=== PATIENT | female | born 1950 | race Caucasian/White ===

== ENCOUNTER 2016-10-24 06:46 | Inpatient (IN) | payer MEDICARE ==
--- NOTE | 2016-10-22 16:12 | CR ---
DATE OF CONSULTATION: 10/22/2016 PREOPERATIVE EVALUATION AND CONSULTATION: REQUESTING SURGEON: Dr. Jose Manuel Ramirez CONSULTING PHYSICIAN: Dr. Fuad Lemus PROPOSED SURGERY: Repair or relocation of colostomy due to a parastomal hernia. DATE OF SURGERY: Planned 10/24/2016 at [facility]. HISTORY OF PRESENT ILLNESS: A very pleasant 66-year-old patient of mine who presents for a preoperative evaluation and consultation. The patient notes in general she is doing quite well. She did have questions regarding repair versus relocation and this was addressed by Dr. Ramirez. She had second opinions prior to this as well and is comfortable going ahead with surgery as planned. Preoperative laboratories were completed on 10/20/2016 without significant abnormality. The patient has no significant cardiac or pulmonary history. She does have known hypertension which has been well-controlled on a low-dose angiotensin-converting enzyme (STAFNORD) inhibitor. She does have a history of breast cancer which is treated at [facility] and the [facility]. She has no evidence of disease. She has had no issues with anesthesia in the past. She does take [id number] Zyrtec for allergies, Pepcid for gastroesophageal reflux disease (GERD) symptoms. Otherwise, she watches her diet and denies any other new concerns or problems. PAST MEDICAL HISTORY: 1. History of breast cancer. 2. Hyperlipidemia. 3. Hypertension. 4. Allergic rhinitis. 5. History of colonic perforation with ostomy creation in 2002. PAST SURGICAL HISTORY: 1. Colostomy after urgent colectomy due to perforation [place] [address] White. 2. Paraesophageal hernia repair [place] [address] Ramirez. 3. Right side carpal tunnel release in 2003. 4. Ventral hernia repair a second time with a parastomal hernia with Dr. Ramirez. 5. Tubal ligation in 1976. 6. Appendectomy in 1956. 7. Right mastectomy in December 2014. ALLERGIES: Shortness of breath with LEVAQUIN and AVELOX, rash with DOXYCYCLINE, AMOXICILLIN and AMPICILLIN. CURRENT MEDICATIONS: Include: - Pepcid AC 10 mg by mouth as needed GERD symptoms - lisinopril 2.5 mg twice a day - nitrofurantoin twice a day - calcium 600 mg daily - ostomy supplies FAMILY HISTORY: 1. Father from sepsis, also a possible rupture of an abdominal aortic aneurysm. 2. Mother from a stroke, had a diabetes. 3. Two brothers passed, one with severe cardiovascular disease who of a myocardial infarction (NC) and renal failure with a stroke, another with esophageal cancer. SOCIAL HISTORY: Patient is to her , Martin, and they have three growing children. 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 She has never smoked. She does not use excess alcohol. REVIEW OF SYSTEMS: As per the history of present illness (HPI), otherwise 10-system review is negative. PHYSICAL EXAMINATION: VITAL SIGNS: Blood pressure 132/82, pulse of 82. Height of 5 feet, 2 inches. Weight of 162 pounds. Body mass index (BMI) 29.6. Oxygen saturation is 98% on room air. GENERAL: The patient is very pleasant in no acute distress, nontoxic, alert and oriented times three. She is at baseline health, is quite functional and interactive. HEENT: Head is normocephalic, atraumatic. Pupils are equal, round, and reactive to light and accommodation. Extraocular motions intact. No lesions of lid or conjunctiva. Oral cavity and oropharynx are benign. NECK: Supple. HEART: Regular rate and rhythm, S1, S2. No murmurs heard. LUNGS: Clear to auscultation bilaterally. No wheezes, rales, or rhonchi. ABDOMEN: Soft, nontender, nondistended. Ostomy is on the left with a paraesophageal hernia. EXTREMITIES: No clubbing, cyanosis, or edema. Normal to inspection and palpation. Normal gait. NEUROLOGIC: Examination is nonfocal. PREOPERATIVE LABORATORY DATA: Completed including an EKG that showed a normal sinus rhythm with no significant abnormalities, a normal CBC and CMP were completed on 10/20/2016. ASSESSMENT AND PLAN: 1. Preoperative evaluation and consultation. At this point in time, the patient appears to be optimized for surgical intervention. She has no significant coronary or pulmonary anesthesia issues at this time. Her other medical issues appear to be stable and if she has any new problems or issues prior to surgery, she will let us know. 2. Parastomal hernia. The patient looks forward to either relocation or appropriate repair and she does look forward to having this completed. 3. Hypertension. Excellent results on present medication. We will continue. Normal electrolytes. 4. Hyperlipidemia. Controlled with diet previously. We will monitor. 5. Personal history of breast cancer. The patient is doing well, following with both her surgeon and oncologist in [place]. No evidence of disease. 6. Allergic rhinitis. She does well with hfkj-wnn-kcoitza Zyrtec. 7. Gastroesophageal reflux disease (GERD). Good results with Pepcid AC. 8. Colostomy status. We discussed her status in detail. We discussed the potential for reversal. She notes that she has thought this through and is not interested in colostomy reversal but notes she is interested in having this appropriately fixed definitively. If she has any problems or issues, she will discuss these further with Dr. Ramirez. 9. Ongoing care. I will go ahead and see her as scheduled. If she has any problems or issues sooner, she will let us know.
[2016-10-24] VITALS (8 sets, daily range): BP systolic 132–170; BP diastolic 68–87
[~2016-10-24] VITALS: Ht 162.6 cm; Wt 74.4 kg
[~2016-10-24 06:46] MED LIST: CALC600T10; CALTCHW5 PO; CLAR5CHW; LISI-542 PO; LISI2.5T PO; METAMUCIL; MULTIVIT; PEPC20TA2 PO; TYLE325T5 PO; TYLE650T30 PO; ULTR50TA PO; ZITHTAB PO; ZYRT10CA PO; areds 2 PO
[2016-10-24] MEDS ORDERED: LR 1,000 ML IV SCH ×3 (07:00→13:30)
--- NOTE | 2016-10-24 08:21 | HPE ---
DATE OF ADMISSION: 10/24/2016 CHIEF COMPLAINT: Parastomal hernia. HISTORY OF PRESENT ILLNESS: The patient has a recurrent parastomal hernia on the left lower quadrant that has been slowly increasing over time and it has been more problematic. It has not caused any obstruction or nausea, but her ostomy is enlarging, becoming painful, giving her pressure, and causing difficulties with fitting of her ostomy appliance. At this point, she has developed a very large parastomal hernia. The last time we used a biologic mesh and had increased risk of recurrence and has recurred at this time. She is not having any blood from the ostomy. She does not have any lower rectal complaints at this time. She had a diverting colostomy because of perianal complications of pain, constipation, etc. She does not want reversal of her colostomy at this time. PAST MEDICAL HISTORY: Significant for history of appendectomy, history of carpal tunnel release, history of ventral/parastomal hernia repair, history of tubal ligation, history of sigmoid colectomy, history of colostomy, history of mastectomy (right). MEDICATIONS (include): - lisinopril - Zyrtec - calcium - PreserVision PHYSICAL EXAMINATION: Reveals a 66-year-old female who looks stated age. HEENT: Reveals an atraumatic, normocephalic head with extraocular movements intact. Pupils are equal and reactive to light. Sclerae nonicteric. Oropharynx is clear without exudate and lesions. Neck is supple without adenopathy. Lungs are clear to auscultation without crackles, wheezes or rhonchi. Heart is regular without murmur. Abdomen is soft, nondistended; however, she has a very large left lower quadrant parastomal hernia that is nontender. It partially reduces, but is so large that it is not easily reduced. The ostomy is functioning fine. There is no abdominal tenderness, guarding, rebound or peritoneal signs. She has a previous right lower quadrant appendectomy site without evidence of hernia. She has a lower midline incision. There is no evidence of incisional hernias appreciated. IMPRESSION AND PLAN: The patient has a parastomal hernia that has been increasing in size and the question at this point is whether local repair is going to be successful, although I do feel the recurrence rate may be relatively high. We may be able to use some synthetic mesh this time, although the infection rate is slightly higher with this, where complications of an infected mesh are higher. She understands our concern at this point about primary repair of this fascial defect with revision of the ostomy. The second option is to reduce the parastomal hernia and place the colostomy in the right lower quadrant while using that parastomal hernia as our incision. This may or may not be amenable to placement. If this is the case, we may have to open up the midline incision. I would find that that would be a less reasonable option for her and she would prefer not to have to two large operative incisions on her inferior abdomen. She understands that there are multiple options available for her and much of which depends on intraoperative findings. She understands the risks that include, but are not limited to, infection, bleeding, damage to surrounding structures and to the colostomy, colostomy dysfunction, colostomy necrosis, as well as, recurrence of the hernia. She understands that the recurrence of the hernia is relatively large. It is relatively likely in this large hernia itself, but I do feel that given the progression in the size of it itself, I do feel that this needs more urgent treatment. She agrees to proceed with this. We have kept her nothing by mouth (n.p.o.) and will plan on a mechanical bowel prep as well as IV antibiotics the day of surgery.
[2016-10-24] MEDS ORDERED: VANCOMYCIN 1000 MG/20 ML VIAL (J3370) As Ordered ONE (08:53)
[2016-10-24] MEDS ORDERED: CETIRIZINE (ZyrTEC) 10 MG TAB PO SCH (09:00)
[2016-10-24] MEDS ORDERED: VANCOMYCIN HCL 1,000 MG, VIAL MATE ADAPTER 1 EACH in D5W 250 ML IV ONE (09:00)
[2016-10-24] MEDS ORDERED: ROCURONIUM BROMIDE 50 MG/5 ML VIAL As Ordered ONE (10:00)
[2016-10-24] MEDS ORDERED: LIDOCAINE 2% INJ 100 MG/5 ML SDV (FOR ANES.) As Ordered ONE (10:00)
[2016-10-24] MEDS ORDERED: PROPOFOL 200 MG/20 ML VIAL As Ordered ONE (10:00)
[2016-10-24] MEDS ORDERED: ONDANSETRON 4MG/2ML VIAL (J2405) As Ordered ONE (10:00)
[2016-10-24] MEDS ORDERED: fentaNYL 100 MCG/2 ML INJECTION (J3010) As Ordered ONE ×2 (10:01→10:53)
[2016-10-24] MEDS ORDERED: MIDAZOLAM INJ 2 MG/2 ML VIAL (J2250) As Ordered ONE (10:01)
[2016-10-24] MEDS ORDERED: BUPIVACAINE HCL 0.25% 10 ML VIAL As Ordered ONE (11:08)
[2016-10-24] MEDS ORDERED: BUPIVACAINE LIPOSOME/PF 1.3% 20 ML VIAL (13.3MG/ML)(EXPAREL) As Ordered ONE (11:08)
[2016-10-24] MEDS ORDERED: HYDROmorphone HCL 2 MG/ML 1ML VIAL (J1170) As Ordered ONE (11:36)
[2016-10-24] MEDS ORDERED: NEOSTIGMINE 1MG/ML 5 ML SYRINGE (J2710) As Ordered ONE (11:54)
[2016-10-24] MEDS ORDERED: GLYCOPYRROLATE INJ 0.2 MG/ML 2 ML VIAL As Ordered ONE (11:54)
[2016-10-24] MEDS: NS 1,000 ML IV SCH (12:37)
[2016-10-24] MEDS ORDERED: MORPHINE PCA 1MG/ML 100ML CADD As Ordered ONE (12:44)
[2016-10-24] MEDS ORDERED: NALOXONE INJ 0.4 MG/1 ML VIAL (J2310) IV PRN (12:45)
[2016-10-24] MEDS ORDERED: ONDANSETRON 4MG/2ML VIAL (J2405) IV PRN ×3 (12:45→13:30)
[2016-10-24] MEDS ORDERED: NALBUPHINE HCL 10 MG/ML AMP (J2300) IV PRN (12:45)
[2016-10-24] MEDS ORDERED: MORPHINE PCA 1MG/ML 100ML CADD IV PRN (12:45)
[2016-10-24] MEDS ORDERED: NORCO, ANEXSIA 5/325MG TABLET (HYDROcodone/ACETAMINOPHEN) PO PRN ×2 (12:45)
[2016-10-24] MEDS ORDERED: EPIDURAL/PCA KEYS XX PRN (12:45)
[2016-10-24] MEDS ORDERED: PROMETHAZINE INJ 25 MG/ML VIAL (J2550) IV PRN (12:45)
[2016-10-24] MEDS ORDERED: diphenhydrAMINE INJ 50MG/ML VIAL (J1200) IV PRN (12:45)
[2016-10-24] MEDS ORDERED: PERCOCET 5MG/325MG TAB PO PRN ×3 (12:45→13:30)
[2016-10-24] MEDS ORDERED: MORPHINE 4 MG/ML 1ML SYRINGE IV PRN (12:45)
[2016-10-24] MEDS ORDERED: METOCLOPRAMIDE INJ 10MG/2ML VIAL (J2765) IV PRN ×2 (12:45→13:30)
[2016-10-24] MEDS ORDERED: MORPHINE 2 MG/ML 1ML SYRINGE IV PRN (12:45)
[2016-10-24] MEDS ORDERED: fentaNYL 100 MCG/2 ML INJECTION (J3010) IV PRN (13:30)
[2016-10-24] MEDS: LISINOPRIL *2.5 MG* TAB PO SCH ×2 (15:33→20:37)
[2016-10-24] MEDS: PANTOPRAZOLE 40MG TAB (PROTONIX) PO SCH (15:33)
[2016-10-24] MEDS: LR 1,000 ML IV SCH ×2 (15:34→20:39)
[2016-10-24] MEDS: ALVIMOPAN 12 MG CAPSULE (ENTEREG) PO SCH (20:37)
[2016-10-24] MEDS: CETIRIZINE (ZyrTEC) 10 MG TAB PO SCH (20:38)
[2016-10-25] MEDS: ACETAMINOPHEN TAB 650MG DOSE (2X325MG) PO PRN ×5 (00:07→20:58)
[2016-10-25 02:00] VITALS: BP 142/76
[2016-10-25] MEDS: LR 1,000 ML IV SCH ×3 (04:22→20:30)
[2016-10-25 06:00] VITALS: BP 132/70
[2016-10-25 06:16] LABS: MEAN CORPUSCULAR HEMOGLOBIN 29.6 pg (27.0-33.0); MEAN CORPUSCULAR HGB CONC 33.1 g/dl (32.0-36.5); MEAN CORPUSCULAR VOLUME 89.6 fl (80.0-96.0); WHITE BLOOD COUNT 9.3 K/mm3 (4.0-10.0)
[2016-10-25 06:31] LABS: ANION GAP 9 MEQ/L (8-16); BLOOD UREA NITROGEN 8 MG/DL (7-18); CALCIUM LEVEL 8.3 MG/DL (8.8-10.2); CARBON DIOXIDE LEVEL 28 MEQ/L (21-32); CHLORIDE LEVEL 106 MEQ/L (98-107); CREATININE FOR GFR 0.61 MG/DL (0.55-1.02); GLOMERULAR FILTRATION RATE > 60.0 (>45); GLUCOSE, FASTING 108 MG/DL (80-110); POTASSIUM SERUM 3.9 MEQ/L (3.5-5.1); SODIUM LEVEL 143 MEQ/L (136-145)
[2016-10-25] MEDS: ALVIMOPAN 12 MG CAPSULE (ENTEREG) PO SCH ×2 (09:22→20:57)
[2016-10-25] MEDS: LISINOPRIL *2.5 MG* TAB PO SCH (09:25)
[2016-10-25] MEDS: PANTOPRAZOLE 40MG TAB (PROTONIX) PO SCH (09:25)
[2016-10-25 10:00] VITALS: BP 135/65
[2016-10-25] MEDS: NS 1,000 ML IV SCH (12:37)
[2016-10-25 14:00] VITALS: BP 135/80
[2016-10-25 18:24] VITALS: BP 160/86
[2016-10-25] MEDS: CETIRIZINE (ZyrTEC) 10 MG TAB PO SCH (20:57)
[2016-10-25] MEDS ORDERED: LISINOPRIL *2.5 MG* TAB PO SCH (21:00)
[2016-10-25] MEDS ORDERED: NORCO, ANEXSIA 5/325MG TABLET (HYDROcodone/ACETAMINOPHEN) PO PRN ×2 (21:45)
[2016-10-25 22:00] VITALS: BP 148/80
[2016-10-26 02:00] VITALS: BP 146/72
[2016-10-26] MEDS: ACETAMINOPHEN TAB 650MG DOSE (2X325MG) PO PRN ×3 (05:38→17:31)
[2016-10-26 06:00] VITALS: BP 155/78
[2016-10-26 06:34] LABS: MEAN CORPUSCULAR HEMOGLOBIN 30.1 pg (27.0-33.0); MEAN CORPUSCULAR HGB CONC 32.9 g/dl (32.0-36.5); MEAN CORPUSCULAR VOLUME 91.6 fl (80.0-96.0); WHITE BLOOD COUNT 7.8 K/mm3 (4.0-10.0)
[2016-10-26 06:43] LABS: ANION GAP 8 MEQ/L (8-16); BLOOD UREA NITROGEN 6 MG/DL (7-18); CALCIUM LEVEL 8.5 MG/DL (8.8-10.2); CARBON DIOXIDE LEVEL 28 MEQ/L (21-32); CHLORIDE LEVEL 106 MEQ/L (98-107); CREATININE FOR GFR 0.52 MG/DL (0.55-1.02); GLOMERULAR FILTRATION RATE > 60.0 (>45); GLUCOSE, FASTING 108 MG/DL (80-110); POTASSIUM SERUM 3.6 MEQ/L (3.5-5.1); SODIUM LEVEL 142 MEQ/L (136-145)
[2016-10-26] MEDS: ALVIMOPAN 12 MG CAPSULE (ENTEREG) PO SCH ×2 (09:29→20:16)
[2016-10-26] MEDS: PANTOPRAZOLE 40MG TAB (PROTONIX) PO SCH (09:30)
[2016-10-26] MEDS: LISINOPRIL *2.5 MG* TAB PO SCH ×2 (09:30→17:31)
[2016-10-26 10:00] VITALS: BP 120/65
[2016-10-26 14:00] VITALS: BP 120/60
[2016-10-26 18:00] VITALS: BP 135/80
[2016-10-26] MEDS: CETIRIZINE (ZyrTEC) 10 MG TAB PO SCH (20:16)
[2016-10-26 22:00] VITALS: BP 140/75
[2016-10-27 02:00] VITALS: BP 128/70
[2016-10-27 06:00] VITALS: BP 132/68
[2016-10-27 06:15] LABS: MEAN CORPUSCULAR HGB CONC 33.4 g/dl (32.0-36.5); MEAN CORPUSCULAR VOLUME 89.8 fl (80.0-96.0); WHITE BLOOD COUNT 7.3 K/mm3 (4.0-10.0)
[2016-10-27 06:28] LABS: ANION GAP 7 MEQ/L (8-16); BLOOD UREA NITROGEN 7 MG/DL (7-18); CALCIUM LEVEL 8.6 MG/DL (8.8-10.2); CARBON DIOXIDE LEVEL 29 MEQ/L (21-32); CHLORIDE LEVEL 106 MEQ/L (98-107); CREATININE FOR GFR 0.53 MG/DL (0.55-1.02); GLOMERULAR FILTRATION RATE > 60.0 (>45); GLUCOSE, FASTING 112 MG/DL (80-110); POTASSIUM SERUM 3.6 MEQ/L (3.5-5.1); SODIUM LEVEL 142 MEQ/L (136-145)
[2016-10-27 08:10] VITALS: BP 134/76
[2016-10-27] MEDS: ALVIMOPAN 12 MG CAPSULE (ENTEREG) PO SCH (08:10)
[2016-10-27] MEDS: LISINOPRIL *2.5 MG* TAB PO SCH (08:10)
[2016-10-27] MEDS: PANTOPRAZOLE 40MG TAB (PROTONIX) PO SCH (08:10)
--- NOTE | 2016-11-15 14:58 | RO ---
DATE OF PROCEDURE: 10/24/2016 PREPROCEDURE DIAGNOSIS: Parastomal hernia. POSTPROCEDURE DIAGNOSIS: Parastomal hernia. PROCEDURE: Repair of parastomal hernia with Phasix mesh and revision of colostomy. SURGEON: Jose Manuel Ramirez MD LINE THERAPIST: Bala Nelson MD (Dr. Nelson provided retraction, exposure and assistance with revision of the colostomy). ANESTHESIA: General endotracheal anesthesia. ESTIMATED BLOOD LOSS: Minimal. FLUIDS: Crystalloid. DESCRIPTION OF PROCEDURE: The patient was brought to the operating room and was given general anesthesia. After adequate anesthesia and preoperative antibiotics were given, the patient was prepped and draped in the usual sterile fashion. Next, the colostomy was closed using a #1 Prolene in a running manner. Then, electrocautery was used cut through the skin surrounding the ostomy itself and a combination of blunt and sharp dissection was used to dissect through skin and subcutaneous tissue where there was a very large amount of small bowel within the hernia sac itself. The hernia sac was dissected off surrounding tissue and at this time what was evident was that there was a great deal of bowel through the fascial defect; however, the fascial defect itself was relatively small. The patient had previous mesh in this area and the mesh was intact but the keyhole incision around the mesh had opened and dilated up. The multiple adhesions that were in this area were taken down with blunt and sharp dissection, as well as electrocautery. Once the small bowel was dissected off all the fascia in this area and the mesh and circumferentially I was able to mobilize all the structures, it was apparent that the colon was still attached to the fascia superiorly and instead of mobilizing this portion of the colon, I felt that this was a good attachment; however, the rest of the colon had been stretched out quite a bit and thus I needed to resect the distal portion of the colon going out to the colostomy itself. In any case, the fascial defect was closed with Ethibond sutures in a [id number] manner. Once this was closed tight enough, I felt that additional reinforcement with mesh was reasonable. I placed some Phasix mesh 4 x 6 cut to the appropriate size and tacked this in with the secure strap. Once this was tacked in nicely, a Jean Claude-Angela drain was left in the bed of the dissection, brought out through a lateral stab incision. The colostomy, which had been previously resected to a more manageable length was then remade at the skin level. First, the skin incision, which was too large at this point, was decreased in size, first bringing the #3-0 Vicryl dermal stitches together to bring the skin incision approximating to a smaller size and then the skin was approximated with chromic. The colostomy was proportion in a typical type of procedure by using #3-0 Vicryl on the skin, deep muscle layer in the colon and then superficially at the colostomy end area. This was repeated at multiple areas except the mesenteric side and multiple interrupted mucosa to skin stitches were placed. The ostomy appliance was applied, and the patient was awakened from her anesthesia, extubated, brought to the recovery room awake, alert, hemodynamically stable. Sponge and needle counts correct times two.
--- NOTE | 2016-11-15 15:01 | DSES ---
DATE OF ADMISSION: 10/24/2016 DATE OF DISCHARGE: 10/27/2016 PRINCIPAL DIAGNOSIS: Parastomal hernia. ASSOCIATED DIAGNOSES: History of appendectomy. History of carpal tunnel release. History of previous parastomal hernia repair. History of tubal ligation. History of sigmoid colectomy. History of colostomy. History of mastectomy. History of hypertension. PROCEDURES PERFORMED Repair of parastomal hernia and revision of colostomy on 10/24/2016. HISTORY OF PRESENT ILLNESS: The patient is a 66-year-old female who had undergone a sigmoid colectomy and colostomy many years ago and this was for chronic constipation and chronic lower GI and perianal complaints. Eventually she underwent a sigmoid colectomy, colostomy and presented to my office for a enlarging/very large parastomal hernia that we repaired. However, she developed some recurrence within a year of developing this previous parastomal hernia and now presents for recurrence of an increasing symptomatic left-sided parastomal hernia. HOSPITAL COURSE SUMMARY: The patient was admitted with the above diagnosis, underwent parastomal hernia repair and tolerated the procedure quite well. Postoperatively she had some discomfort and pain at the parastomal hernia site but this resolved quickly and she was started on clear liquid diet, advanced to a regular diet relatively quickly. She had a normal temperature, normal white count throughout her hospitalization. She was discharged home on her usual medications which include Caltrate, cetirizine, lisinopril, AREDS 2. She was instructed to take care of her Jean Claude-Angela drain and she was we scheduled her to follow up with me in 1 week for suture removal/drain removal and 2 weeks for reevaluation postop.
== END 2016-10-27 10:33 | disposition home or self-care (01) | DRG 355 ==
LOC: M SDC 06:46 → M MSPAV 14:28
PROVIDERS: ADMIT Surgery; ATTEND Surgery
PROC: 0WUF0JZ Supplement Abdominal Wall with Synthetic Substitute, Open Approach (ICD-10-PCS; 2016-10-24)
PROC: 0WQF0ZZ Repair Abdominal Wall, Open Approach (ICD-10-PCS; principal; 2016-10-24 08:15)
DX: K43.5 Parastomal hernia without obstruction or gangrene (principal); I10 Essential (primary) hypertension; Z88.8 Allergy status to other drugs, medicaments and biological substances; Z88.0 Allergy status to penicillin; Z79.899 Other long term (current) drug therapy; E78.5 Hyperlipidemia, unspecified; J30.9 Allergic rhinitis, unspecified; K21.9 Gastro-esophageal reflux disease without esophagitis

== ENCOUNTER → 2017-09-08 | Outpatient (REF) | payer MEDICARE | LOC: M LAB REF 13:23 | DX: Z01.419 Encounter for gynecological examination (general) (routine) without abnormal findings (principal); Z11.3 Encounter for screening for infections with a predominantly sexual mode of transmission | CPT/HCPCS: G0123 ==

== ENCOUNTER → 2018-01-14 | Outpatient (REF) | payer MEDICARE | LOC: M LAB REF 16:52 | DX: N39.0 Urinary tract infection, site not specified (principal) | CPT/HCPCS: 87086 ==

== ENCOUNTER 2019-03-31 09:51 | Day surgery (SDC) | payer MEDICARE ==
[~2019-03-31] VITALS: Ht 162.6 cm; Wt 72.6 kg
[~2019-03-31 09:51] MED LIST changes: +CETI10CH PO; +CVS500CA5 PO; +LEVO25TA5 PO; -ULTR50TA PO; +ULTR50TA8 PO
[2019-03-31] MEDS ORDERED: PROPOFOL 200 MG/20 ML VIAL As Ordered ONE (11:12)
[2019-03-31] MEDS ORDERED: LIDOCAINE 2% INJ 100 MG/5 ML SDV (FOR ANES.) As Ordered ONE (11:12)
[2019-03-31] MEDS ORDERED: ESMOLOL INJ 100MG/10ML VIAL As Ordered ONE (11:46)
--- NOTE | 2019-03-31 11:56 | ROOR ---
Patient Name: Marielos Mccray Procedure Date: 03/31/2019 11:31 AM Date of : 1950 Age: 69 Room: [facility] Gender: Female Note Status: Finalized Procedure: Colonoscopy Indications: Screening for colorectal malignant neoplasm Providers: Jose Manuel Ramirez Jr, MD Referring MD: Fuad Lemus MD Requesting Provider: Medicines: Propofol per Anesthesia Complications: No immediate complications. Procedure: Pre-Anesthesia Assessment: - Prior to the procedure, a History and Physical was performed, and patient medications and allergies were reviewed. The patient is competent. The risks and benefits of the procedure and the sedation options and risks were discussed with the patient. All questions were answered and informed consent was obtained. Patient identification and proposed procedure were verified by the physician and the nurse in the pre-procedure area and in the procedure room. Mental Status Examination: alert and oriented. Airway Examination: normal oropharyngeal airway and neck mobility. Respiratory Examination: clear to auscultation. CV Examination: normal. ASA Grade Assessment: II - A patient with mild systemic disease. After reviewing the risks and benefits, the patient was deemed in satisfactory condition to undergo the procedure. The anesthesia plan was to use moderate sedation / analgesia (conscious sedation). Immediately prior to administration of medications, the patient was re-assessed for adequacy to receive sedatives. The heart rate, respiratory rate, oxygen saturations, blood pressure, adequacy of pulmonary ventilation, and response to care were monitored throughout the procedure. The physical status of the patient was re-assessed after the procedure. The Colonoscope was introduced through the sigmoid colostomy and advanced to the cecum, identified by appendiceal orifice and ileocecal valve. The colonoscopy was performed without difficulty. The patient tolerated the procedure well. The quality of the bowel preparation was adequate. Findings: The sigmoid colon, proximal sigmoid colon, descending colon, transverse colon, ascending colon, cecum, appendiceal orifice and ileocecal valve appeared normal. A diffuse area of mildly friable mucosa was found in the rectum. Impression: - The sigmoid colon, proximal sigmoid colon, descending colon, transverse colon, ascending colon, cecum, appendiceal orifice and ileocecal valve are normal. - Friability in the rectum. - No specimens collected. Recommendation: - Discharge patient to home (ambulatory). - Repeat colonoscopy in 10 years for screening purposes. Jose Manuel Ramirez MD Jose Manuel Ramirez Jr, MD 03/31/2019 11:56:11 AM Electronically signed by Jose Manuel Ramirez Jr, MD Number of Addenda: 0 Note Initiated On: 03/31/2019 11:31 AM Estimated Blood Loss: Estimated blood loss: none.
[2019-03-31 12:21] VITALS: BP 176/80
[2019-03-31] MEDS ORDERED: NS 1,000 ML IV ONE (12:30)
== END 2019-03-31 12:27 | disposition home or self-care (01) ==
LOC: M OPP 09:51
PROVIDERS: ATTEND Surgery
DX: Z12.11 Encounter for screening for malignant neoplasm of colon (principal); K62.89 Other specified diseases of anus and rectum; E03.9 Hypothyroidism, unspecified; Z79.899 Other long term (current) drug therapy; Z88.0 Allergy status to penicillin; Z88.8 Allergy status to other drugs, medicaments and biological substances; Z93.3 Colostomy status; Z85.3 Personal history of malignant neoplasm of breast

== ENCOUNTER → 2019-07-09 | Outpatient (REF) | payer MEDICARE ==
[2019-07-09 21:45] LABS: APPEARANCE, URINE HAZY (CLEAR); BACTERIA, URINE AUTO NEGATIVE (NEGATIVE); BILIRUBIN, URINE AUTO NEGATIVE (NEGATIVE); BLOOD, URINE BLOOD 1+ (NEGATIVE); COLOR, URINE YELLOW (YELLOW); GLUCOSE, URINE (UA) AUTO NEGATIVE (NEGATIVE); KETONE, URINE AUTO NEGATIVE (NEGATIVE); LEUKOCYTE ESTERASE, URINE AUTO 3+ (NEGATIVE); MUCUS, URINE SMALL (NEGATIVE); NITRITE, URINE AUTO POSITIVE (NEGATIVE); PROTEIN, URINE AUTO NEGATIVE (NEGATIVE); RBC, URINE AUTO 5 /HPF (0-3); SPECIFIC GRAVITY URINE AUTO 1.016 (1.002-1.035); SQUAMOUS EPITHELIAL CELL UR AU 0 /HPF (0-6); UROBILINOGEN, URINE AUTO 0.2 mg/dL (0.0-2.0); WBC, URINE AUTO TNTC /HPF (0-3)
== END ==
LOC: M LAB REF 08:54
PROVIDERS: ATTEND Physician Assistant
DX: N39.0 Urinary tract infection, site not specified (principal)

== ENCOUNTER → 2020-10-22 | Outpatient (REF) | payer MEDICARE ==
[~2020-10-22] MED LIST changes: -LISI-542 PO; +LISI-898 PO
== END ==
LOC: M LAB REF 16:21
PROVIDERS: ATTEND Family Medicine
DX: N39.0 Urinary tract infection, site not specified (principal)

== ENCOUNTER → 2021-02-01 | Outpatient (REF) | payer MEDICARE ==
[2021-02-01 13:51] LABS: APPEARANCE, URINE HAZY (CLEAR); BACTERIA, URINE AUTO NEGATIVE (NEGATIVE); BILIRUBIN, URINE AUTO NEGATIVE (NEGATIVE); BLOOD, URINE BLOOD 2+ (NEGATIVE); COLOR, URINE STRAW (YELLOW); GLUCOSE, URINE (UA) AUTO NEGATIVE (NEGATIVE); KETONE, URINE AUTO NEGATIVE (NEGATIVE); LEUKOCYTE ESTERASE, URINE AUTO 3+ (NEGATIVE); NITRITE, URINE AUTO NEGATIVE (NEGATIVE); PROTEIN, URINE AUTO NEGATIVE (NEGATIVE); RBC, URINE AUTO 2 /HPF (0-3); SPECIFIC GRAVITY URINE AUTO 1.003 (1.002-1.035); SQUAMOUS EPITHELIAL CELL UR AU 0 /HPF (0-6); UROBILINOGEN, URINE AUTO 0.2 mg/dL (0.0-2.0); WBC, URINE AUTO 130 /HPF (0-3)
== END ==
LOC: M LAB REF 13:09
PROVIDERS: ATTEND Physician Assistant
DX: N39.0 Urinary tract infection, site not specified (principal)

== ENCOUNTER → 2021-04-30 | Outpatient (REF) | payer MEDICARE ==
[2021-04-30 21:36] LABS: APPEARANCE, URINE TURBID (CLEAR); BILIRUBIN, URINE AUTO NEGATIVE (NEGATIVE); BLOOD, URINE BLOOD 2+ (NEGATIVE); COLOR, URINE YELLOW (YELLOW); GLUCOSE, URINE (UA) AUTO NEGATIVE (NEGATIVE); KETONE, URINE AUTO NEGATIVE (NEGATIVE); LEUKOCYTE ESTERASE, URINE AUTO 3+ (NEGATIVE); NITRITE, URINE AUTO NEGATIVE (NEGATIVE); PROTEIN, URINE AUTO 3+ mg/dL (NEGATIVE); SPECIFIC GRAVITY URINE AUTO 1.024 (1.002-1.035); UROBILINOGEN, URINE AUTO 0.2 mg/dL (0.0-2.0)
[2021-04-30 21:39] LABS: BACTERIA, URINE AUTO NEGATIVE (NEGATIVE); CALCIUM OXALATE CRYSTALS MODERATE; MUCUS, URINE SMALL (NEGATIVE); RBC, URINE AUTO 98 /HPF (0-3); SQUAMOUS EPITHELIAL CELL UR AU 0 /HPF (0-6); WBC, URINE AUTO TNTC /HPF (0-3)
== END ==
LOC: M LAB REF 21:18
PROVIDERS: ATTEND Physician Assistant Medical
DX: R30.0 Dysuria (principal)

== ENCOUNTER → 2022-12-31 | Outpatient (REF) | payer MEDICARE ==
[~2022-12-31] MED LIST changes: -LISI-898 PO; +LISI5TAB11 PO
[2022-12-31 12:51] LABS: APPEARANCE, URINE HAZY (CLEAR); BACTERIA, URINE AUTO 1+ (NEGATIVE); BILIRUBIN, URINE AUTO NEGATIVE (NEGATIVE); BLOOD, URINE BLOOD NEGATIVE (NEGATIVE); COLOR, URINE STRAW (YELLOW); GLUCOSE, URINE (UA) AUTO NEGATIVE (NEGATIVE); KETONE, URINE AUTO NEGATIVE (NEGATIVE); LEUKOCYTE ESTERASE, URINE AUTO 3+ (NEGATIVE); MUCUS, URINE SMALL (NEGATIVE); NITRITE, URINE AUTO NEGATIVE (NEGATIVE); PROTEIN, URINE AUTO NEGATIVE (NEGATIVE); RBC, URINE AUTO 2 /HPF (0-3); SPECIFIC GRAVITY URINE AUTO 1.005 (1.002-1.035); SQUAMOUS EPITHELIAL CELL UR AU 0 /HPF (0-6); UROBILINOGEN, URINE AUTO 0.2 mg/dL (0.0-2.0); WBC, URINE AUTO 107 /HPF (0-3)
== END ==
LOC: M LAB REF 12:01
PROVIDERS: ATTEND Physician Assistant
DX: N39.0 Urinary tract infection, site not specified (principal)

== ENCOUNTER → 2023-04-14 | Outpatient (REF) | payer MEDICARE ==
[2023-04-16 08:11] LABS: LDL DIRECT 95 mg/dL (0-99)
== END ==
LOC: M LAB REF 16:23
PROVIDERS: ATTEND Family Medicine
DX: E78.5 Hyperlipidemia, unspecified (principal)

== ENCOUNTER → 2024-07-03 | Outpatient (REF) | payer MEDICARE | LOC: M LAB REF 18:27 | PROVIDERS: ATTEND Physician Assistant Medical | DX: B34.9 Viral infection, unspecified (principal) ==

== ENCOUNTER → 2024-09-14 | Outpatient (REF) | payer MEDICARE ==
[2024-09-14 17:11] LABS: APPEARANCE, URINE CLEAR (CLEAR); BACTERIA, URINE AUTO 1+ (NEGATIVE); BILIRUBIN, URINE AUTO NEGATIVE (NEGATIVE); BLOOD, URINE BLOOD NEGATIVE (NEGATIVE); COLOR, URINE YELLOW (YELLOW); GLUCOSE, URINE (UA) AUTO NEGATIVE (NEGATIVE); KETONE, URINE AUTO NEGATIVE (NEGATIVE); LEUKOCYTE ESTERASE, URINE AUTO 2+ (NEGATIVE); NITRITE, URINE AUTO NEGATIVE (NEGATIVE); PROTEIN, URINE AUTO NEGATIVE (NEGATIVE); RBC, URINE AUTO 2 /HPF (0-3); SPECIFIC GRAVITY URINE AUTO 1.012 (1.002-1.035); SQUAMOUS EPITHELIAL CELL UR AU 0 /HPF (0-6); UROBILINOGEN, URINE AUTO 0.2 mg/dL (0.0-2.0); WBC, URINE AUTO 31 /HPF (0-3)
== END ==
LOC: M LAB REF 16:14
PROVIDERS: ATTEND Physician Assistant
DX: N39.0 Urinary tract infection, site not specified (principal)